=== PATIENT | female | born 1975 | race Caucasian/White ===

== ENCOUNTER → 2017-08-03 | Outpatient (CLI) | payer OTHER ==
[~2017-08-03] MED LIST: AMPH20CA3 PO; CETI10TA84 PO; FLUT50SP14 NAE
== END | disposition home or self-care (01) ==
LOC: C.PAPS 08:11
PROVIDERS: ATTEND Obstetrics & Gynecology
DX: Z01.419 Encounter for gynecological examination (general) (routine) without abnormal findings (principal)

== ENCOUNTER → 2017-09-27 | Outpatient (CLI) | payer OTHER | END | disposition home or self-care (01) | LOC: C.LAB1850 11:57 | PROVIDERS: ATTEND Internal Medicine Pulmonary Disease | DX: J45.909 Unspecified asthma, uncomplicated (principal); T78.02XA Anaphylactic reaction due to shellfish (crustaceans), initial encounter; T78.1XXA Other adverse food reactions, not elsewhere classified, initial encounter; T78.00XA Anaphylactic reaction due to unspecified food, initial encounter; J30.9 Allergic rhinitis, unspecified; X58.XXXA Exposure to other specified factors, initial encounter ==